=== PATIENT | female | born 1945 | race Caucasian/White ===

== ENCOUNTER 2022-08-23 12:05 | Emergency (ER) | payer MEDICARE ==
[~2022-08-23] VITALS: Ht 160 cm; Wt 68.0 kg
[2022-08-23 12:12] VITALS: BP_SYST 117; PULSE 91; RESP 18; TEMP 98.2; O2SAT 97
--- NOTE | 2022-08-23 12:20 | NUR ---
Placed in room 07 . Placed on playground monitor, blood pressure machine and pulse oximeter. To gown for exam. Side rails up. Report given to JAD FAUSTIN.
--- NOTE | 2022-08-23 12:25 | NUR ---
ER DR. CAMPOS AT THE BEDSIDE EXAMINING PT
[2022-08-23] MEDS ORDERED: NACL 0.9% 1,000 ML IV ONE (12:30)
--- NOTE | 2022-08-23 12:30 | NUR ---
PATIENT BIB [facility] FROM [facility] C/O GENERAL WEAKNESS, N/V/D x 1-2 WEEKS. PATIENT NOTED LETHARGIC. MED HX DM, HLD, GERD, CVS\A. TAKES PLAVIX & ADA. NKA. VSS.
--- NOTE | 2022-08-23 13:00 | NUR ---
# 20 gauge angiocath placed to RIGHT WRIST. Use of asceptic technique. Opsite placed over site. Blood return noted. Blood for lab drawn from site. Flushed with 10 cc of normal saline. No evidence of infiltration noted. Patient tolerated well.
--- NOTE | 2022-08-23 13:00 | NUR ---
PHLEBOTOMY AT BEDSIDE COLLECTING BLOOD CULTURES.
[2022-08-23 13:03] LABS: BASOPHILS % (AUTO) 0.4 % (0.0-2.0); EOSINOPHILS % (AUTO) 0.5 % (0.0-4.0); HEMATOCRIT 34.8 % (36-48); HEMOGLOBIN 11.4 g/dL (12.0-16.0); LYMPHOCYTES # (AUTO) 1.2 K/uL (1.0-5.5); LYMPHOCYTES % (AUTO) 15.1 % (20.5-51.5); MEAN CORPUSCULAR HEMOGLOBIN 33 pg (27-31); MEAN CORPUSCULAR HGB CONC 33 % (32-36); MEAN CORPUSCULAR VOLUME 100 fL (79.0-98.0); MONOCYTES # (AUTO) 0.4 K/uL (0.0-1.0); MONOCYTES % (AUTO) 5.4 % (1.7-9.3); NEUTROPHILS % (AUTO) 78.6 % (40.0-70.0); PLATELET COUNT (AUTO) 238 K/uL (130-430); RED CELL DISTRIBUTION WIDTH 14.5 % (9.0-15.0); WHITE BLOOD COUNT (AUTO) 7.7 K/uL (4.8-10.8)
[2022-08-23 13:15] LABS: ANION GAP 13 (5-15); CALCIUM 8.9 mg/dL (8.4-11.0); CHLORIDE 101 mmol/L (98-107); CREATININE 2.06 mg/dL (0.55-1.30); GLUCOSE 364 mg/dL (74-106); UREA NITROGEN, BLOOD 58 mg/dL (8-21)
--- NOTE | 2022-08-23 13:20 | NUR ---
PATIENT TO CT
[2022-08-23 13:34] LABS: ALANINE AMINOTRANSFERASE 9 U/L (12-78); ALBUMIN 2.4 g/dL (3.4-4.8); ASPARTATE AMINOTRANSFERASE 16 U/L (10-37); LIPASE 10 U/L (73-393); TOTAL BILIRUBIN 0.4 mg/dL (0.0-1.0)
[2022-08-23 13:35] LABS: ACETAMINOPHEN < 1 ug/mL (1-30)
--- NOTE | 2022-08-23 13:36 | NUR ---
CRITICAL LAB VALUE TROPONIN 232 RECEIVED BY CHARGE NURSE. MADE AWARE.
[2022-08-23] MEDS ORDERED: ASPIRIN 325 MG TABLET PO ONE (13:45)
--- NOTE | 2022-08-23 14:20 | NUR ---
CODE STROKE INITIATED
--- NOTE | 2022-08-23 14:45 | NUR ---
CYNTHIA CAMPOS SPEAKING WITH [employer]
--- NOTE | 2022-08-23 15:00 | NUR ---
NURSE WAS AVAILABLE AT BEDSIDE WITH [facility] [employer] [facility]. INITIAL STEAM AND [employer] ASSEMBLER APPEARED ASND DID SYSTEM CHECK AND STATED THAT NEURO MD WOULD APPEAR SHORTLY. NURSE REMAINED IN ROOM FOR APPROX 20 MINUTES WITH NO APPEARANCE FROM NEURO MD.
[2022-08-23 15:07] LABS: CHOLESTEROL 88 mg/dL (<200); HDL CHOLESTEROL 51 mg/dL (>55); TRIGLYCERIDES 107 mg/dL (30-150)
[2022-08-23 15:09] LABS: INR 1.1 (0.8-1.2)
--- NOTE | 2022-08-23 15:20 | NUR ---
Spoke to Krishna at [facility]. Gave report of Patient history & status. Krishna states they will review Patient Ct and return call.
--- NOTE | 2022-08-23 15:40 | NUR ---
NEURO MD APPEARED ON SCREEN AND NURSE REPORTED TO PATIENT ROOM TO ASSIST WITH TELEMED SCREENING. NO MD WAS ON SCREEN AND NURSE REMAINED IN ROOM FOR 5 MINUTES FOR MD TO CALL BACK.
--- NOTE | 2022-08-23 17:49 | NUR ---
[id number] REPORT #: [phone] ACCEPTING: DR. JONELLE VARGHESE 1914 SPOKE TO MADELINE
[2022-08-23 19:50] VITALS: BP_SYST 121; PULSE 89; RESP 19; TEMP 98; O2SAT 98
--- NOTE | 2022-08-23 19:50 | NUR ---
Patient to be transferred to [facility]. Is being transferred due to higher level of care. Receiving facility has accepting physician and available space. ER physician has signed transfer form. Patient or responsible constitution party has agreed to transfer and signed form. Patient belongings inventoried and will be sent with patient. Copy of nursing notes, lab reports, EKG, Physicians Orders and X-rays to be sent with patient. Report called to CAMILA Hollingsworth at receiving facility. Receiving physician is Dr. Verduzco.
--- NOTE | 2022-08-23 20:01 | NUR ---
Spoke to CAMILA Ramirez at [facility] & gave report on Patient.
== END 2022-08-23 19:50 | disposition short-term general hospital (02) ==
LOC: SED 12:05
DX: I61.8 Other nontraumatic intracerebral hemorrhage (principal); I67.81 Acute cerebrovascular insufficiency; I21.4 Non-ST elevation (NSTEMI) myocardial infarction; E86.0 Dehydration; N17.9 Acute kidney failure, unspecified; E11.9 Type 2 diabetes mellitus without complications; K21.9 Gastro-esophageal reflux disease without esophagitis; I10 Essential (primary) hypertension; E78.5 Hyperlipidemia, unspecified; R11.2 Nausea with vomiting, unspecified; R19.7 Diarrhea, unspecified; Z79.899 Other long term (current) drug therapy
CPT/HCPCS: 99291; 70450; 96360; 80061; 80053; 83037; 83690; 85025; 85610; 85730; 87040; 84484; 36415; 93005; 70360; 71045; 76376; 74176; 99292; G0481; J7030; G0480